=== PATIENT | female | born 1965 | race African-American/Black ===

== ENCOUNTER 2018-02-11 19:09 | Emergency (ER) | payer MEDICARE, OTHER ==
[~2018-02-11] VITALS: Ht 160 cm; Wt 68.0 kg
[2018-02-11 19:20] VITALS: BP 128/76
[2018-02-11 19:50] VITALS: BP 128/76
--- NOTE | 2018-02-11 21:54 | Emergency Room Report ---
History of Present Illness General Chief Complaint: Pain Source: Patient Present Illness HPI Patient is a 52-year-old female brought in by EMS after increased lower extremity pain. Patient prior history of chronic pain and had been taking [place] 06/01/2025. The patient prior history of amputation.Patient states that she had been close to running out of her pain medications. The patient was requesting a refill. Allergies: Coded Allergies: No Known Allergies (Unverified , 02/11/18) Patient History Past Medical History: see triage record Now: No Reviewed Nursing Documentation: PMH: Agreed; PSxH: Agreed Nursing Documentation-PMH Past Medical History: No History, Except For Hx Hypertension: Yes Hx Diabetes: Yes Review of Systems All Other Systems: negative except mentioned in HPI Physical Exam Vital Signs Date Time Temp Pulse Resp B/P (MAP) Pulse Ox O2 Delivery O2 Flow Rate FiO2 02/11/18 19:13 97.7 58 16 128/76 96 Room Air 97.7 General Appearance: well appearing, no apparent distress, alert, GCS 15, obese , Chronically Ill Head: normocephalic, atraumatic ENT: hearing grossly normal, normal voice Neck: full range of motion, supple Respiratory: no respiratory distress, speaking full sentences Gastrointestinal: normal inspection, normal bowel sounds, non tender Musculoskeletal: no calf tenderness Neurologic: normal inspection, alert, oriented x3, responsive, cherry picker operator III-XII nml as tested, other - left bka Psychiatric: mood/affect normal Skin: no rash Medical Decision Making Diagnostic Impression: Primary Impression: Chronic pain ER Course Patient presented for chronic pain. Differential diagnosis included was not limited to cellulitis, infection, opiate withdrawal among others. Patient has a benign exam and does not appear to require any further imaging or laboratory testing at this time. The patient was advised that has I could not refill her chronic pain medications.The patient is advised to follow up with primary care doctor in 1-2 days. Patient is advised to return if any worsening condition or if any changes in status that are concerning. This report is dictated with [employer] liquor runner software which may occasionally lead to discrepancies related to use of this software. Last Vital Signs Date Time Temp Pulse Resp B/P (MAP) Pulse Ox O2 Delivery O2 Flow Rate FiO2 02/11/18 19:50 97.7 16 128/76 96 Room Air 97.7 02/11/18 19:13 58 Status: unchanged Disposition: HOME, SELF-CARE Condition: Stable Referrals: NON PHYSICIAN (PCP) Domenic Ibarra MD Feb 11, 2018 21:54
== END 2018-02-11 19:50 | disposition home or self-care (01) ==
LOC: EDUNIT# 19:09 → EDBD 19:09 → EMR 19:36
DX: G89.29 Other chronic pain (principal); I10 Essential (primary) hypertension; E11.9 Type 2 diabetes mellitus without complications; Z89.512 Acquired absence of left leg below knee; E66.9 Obesity, unspecified; Z68.26 Body mass index [BMI] 26.0-26.9, adult
CPT/HCPCS: 99283

== ENCOUNTER 2019-05-20 20:45 | Inpatient (IN) | payer MEDICARE ==
[~2019-05-20] VITALS: Ht 160 cm; Wt 61.2 kg
[~2019-05-20 20:45] MED LIST: AMLODIPINE BESYL5 MG ORAL; BENZTROPINE ME0.5 MG PO; CATAPRES0.2 MG ORAL; HALOPERIDOL0.5 MG ORAL; NORCO 10-325 T1 EACH ORAL; SPIRONOLACTONE100 MG ORAL
--- NOTE | 2019-05-20 21:34 | Emergency Room Report ---
History of Present Illness General Chief Complaint: General Complaint Source: Patient Present Illness [facility] This is a 53-year-old female who was admitted here for bacteremia secondary to Acinobacter. She had a very high white count and positive blood culture. She signed out AMA to go smoke. Now she is back. She presents with chief complaint of positive blood culture. Patient denies any pain. No fever chills but no nausea no vomiting. Allergies: Coded Allergies: No Known Allergies (Unverified , 02/11/18) Patient History Past Medical History: see triage record, old chart reviewed Past Surgical History: other Pertinent Family History: none Social History: Reports: smoking Now: No Immunizations: other Reviewed Nursing Documentation: PMH: Agreed; PSxH: Agreed Nursing Documentation-PMH Past Medical History: No History, Except For Hx Cardiac Problems: Yes Hx Hypertension: Yes Hx Diabetes: Yes Hx Cancer: No Hx Gastrointestinal Problems: No Hx Neurological Problems: No Review of Systems Eye: Denies: eye pain, blurred vision ENT: Denies: ear pain, nose congestion, throat swelling Respiratory: Denies: cough, shortness of breath Cardiovascular: Denies: chest pain, palpitations Gastrointestinal: Denies: abdominal pain, diarrhea, nausea, vomiting Musculoskeletal: Denies: back pain, joint pain Skin: Denies: rash Neurological: Denies: headache, numbness Endocrine: Denies: increased thirst, increased urine Hematologic/Lymphatic: Denies: easy bruising All Other Systems: negative except mentioned in HPI Physical Exam Vital Signs Date Time Temp Pulse Resp B/P (MAP) Pulse Ox O2 Delivery O2 Flow Rate FiO2 05/20/19 20:57 98.4 125 18 148/83 (104) 97 Room Air Sp02 EP Interpretation: reviewed, normal General Appearance: well appearing, no apparent distress, alert Head: normocephalic, atraumatic Eyes: bilateral eye PERRL, bilateral eye EOMI ENT: hearing grossly normal, normal pharynx Neck: full range of motion, supple, no meningismus Respiratory: chest non-tender, lungs clear, normal breath sounds Cardiovascular #1: regular rate, rhythm, no murmur Gastrointestinal: normal bowel sounds, non tender, no mass, no organomegaly, no bruit, non-distended Musculoskeletal: back normal, gait/station normal, normal range of motion Psychiatric: mood/affect normal, other - flat Affect Medical Decision Making Diagnostic Impression: Primary Impression: Bacteremia Additional Impression: Chronic pain Qualified Codes: G89.4 - Chronic pain syndrome ER Course Presents with bacteremia and chronic pain. She has a high white count and a psychiatric disorder. She is in no condition to sign out AGAINST MEDICAL ADVICE. I discussed the case with Dr. Rodriguez who will admit the patient. Last Vital Signs Date Time Temp Pulse Resp B/P (MAP) Pulse Ox O2 Delivery O2 Flow Rate FiO2 05/20/19 20:57 98.4 125 18 148/83 (104) 97 Room Air Status: unchanged Disposition: ADMITTED INPATIENT Condition: Serious Referrals: NON PHYSICIAN (PCP) Guillermo Burk MD May 20, 2019 21:33
--- NOTE | 2019-05-20 22:00 | NUR ---
ED Nurse Note: PT BEING RE-ADMITTED TO FLOOR BED, REPORT CALLED TO FLOOR NURSE JORY KANG, PT HAS PATENT SALINE LOCK INTACT AND PATENT, DENIES PAIN, RESTING QUIETLY IN BED, BELONGINGS LIST COMPLETED, PT TAKEN TO FLOOR BED VIA GURNEY WITH ER-TECH, NAD NOTED DURING TRANSFER TO FLOOR BED.
[2019-05-20 22:15] VITALS: BP 141/74
--- NOTE | 2019-05-20 22:15 | NUR ---
ED Nurse Note: RECIEVED PT ON [employer] AWAKE, ALERT AND ORIENTED X 4, PT FOUND OUTSIDE, UNABLE TO AMBULATE, HAS PROSTETIC LEG ON RIGHT, PT WAS ADMITTED UPSTAIRS AND DISCHARGED AMA BECAUSE SHE WANTED TO SMOKE A CIGARETTE, PT SMOKED AND CAME RIGHT BACK INTO EMERGENCY DEPARTMENT FOR RE-ADMISSION, PT GOWNED AND PLACED ON MONITORING. Addendum: 05/21/19 at 0258 by RUSH PREVIOUS [id number] NURSE NOTE IS FOR 2114. WRONG TIME CHARTED.
[2019-05-20 22:35] VITALS: BP 119/88
[2019-05-21] VITALS: BP 132/87
[2019-05-21] MEDS ORDERED: oxyCODONE 5mg IR tab ORAL PRN ×2 (00:15→04:15)
[2019-05-21] MEDS ORDERED: LORazepam Inj 2mg/ml 1ml IV PRN (00:45)
[2019-05-21] MEDS ORDERED: LORazepam 1mg tab ORAL PRN (00:45)
[2019-05-21] MEDS ORDERED: Morphine Sulfate 2mg/ml Inj(IV/IM USE ONLY) IVP PRN (00:45)
[2019-05-21] MEDS ORDERED: Simethicone 80mg tab ORAL PRN (00:45)
[2019-05-21] MEDS ORDERED: cefTRIAXone 1 GM in D5W 55 ML IVPB SCH ×2 (02:30→11:00)
[2019-05-21 04:00] VITALS: BP 114/82
[2019-05-21 06:35] LABS: HEMATOCRIT 38.5 % (37.0-47.0); MEAN CORPUSCULAR VOLUME 95 FL (80-99); PLATELET COUNT 488 K/UL (150-450); RED BLOOD COUNT 4.06 M/UL (4.20-5.40); RED CELL DISTRIBUTION WIDTH 12.2 % (11.6-14.8)
[2019-05-21] MEDS: NovoLOG Insulin Flexpen SUBQ SCH ×2 (06:39→11:46)
[2019-05-21 06:41] LABS: WHITE BLOOD COUNT 23.4 K/UL (4.8-10.8)
[2019-05-21 07:21] LABS: ALANINE AMINOTRANSFERASE 46 U/L (12-78); ALBUMIN 2.5 G/DL (3.4-5.0); ALBUMIN/GLOBULIN RATIO 0.6 (1.0-2.7); ALKALINE PHOSPHATASE 127 U/L (46-116); ASPARTATE AMINO TRANSFERASE 25 U/L (15-37); BILIRUBIN,TOTAL 0.3 MG/DL (0.2-1.0); BLOOD UREA NITROGEN 27 mg/dL (7-18); CALCIUM 9.4 MG/DL (8.5-10.1); CREATININE 1.2 MG/DL (0.55-1.30)
--- NOTE | 2019-05-21 07:30 | NUR ---
HAND-OFF: Report given to Leah Montoya RN.
--- NOTE | 2019-05-21 07:31 | NUR ---
NURSE NOTES: While RN getting the report on the station, patient noted with episode of throwing coffee cup to the floor.Security was called right away.Patient was verbally abusive and screaming and yelling asking for smoking and spitted on RN.RN explained about smoking policy. Patient threw the whole tray to the floor and remote control too. No injuries to patient,nurse and security. Rn spoke to Dr. Nicholas and relayed WBC of 23.4 and patient is asking for smoking and nicotine patch is scheduled @ 9:00am. Dr. Nicholas said patient can go out for smoking x1 with assist and page Dr. Rodriguez. Order read back and carried out. EVS was called.
--- NOTE | 2019-05-21 07:50 | NUR ---
NURSE NOTES: Received patient on bed, awake, alert and verbally responsive. No SOB or cardiac distress. Noted with an episode of yelling and disruptive behavior: throwing her food tray across the room. Expressed desire to go AMA, risks and benefits explained. Head of bed elevated. Bed in lowest position and locked. Kept call light within reach. Will continue plan of care.
--- NOTE | 2019-05-21 07:50 | NUR ---
NURSE NOTES: Patient is calm @ this time asking to be cleaned.
[2019-05-21 08:00] VITALS: BP 117/76
--- NOTE | 2019-05-21 08:30 | NUR ---
NURSE NOTES: patient states that she has no cigaret and agreed not to go for smoking. Patient is calm @ this time. Will continue to monitor.
[2019-05-21 08:33] LABS: ANION GAP 11 mmol/L (5-15); CARBON DIOXIDE 22 MMOL/L (21-32); CHLORIDE 105 MMOL/L (98-107); POTASSIUM 4.7 MMOL/L (3.5-5.1); SODIUM 138 MMOL/L (136-145)
[2019-05-21] MEDS ORDERED: Aspirin Baby 81mg ORAL SCH (09:00)
[2019-05-21] MEDS ORDERED: Heparin 5000 units/ml inj SUBQ SCH (09:00)
[2019-05-21] MEDS ORDERED: Fluconazole 100mg tab ORAL SCH (09:00)
--- NOTE | 2019-05-21 10:00 | NUR ---
NURSE NOTES: Patient is calm @ this time.Resting in bed.
[2019-05-21 10:05] VITALS: BP 117/76
[2019-05-21] MEDS: Lactobacillus-GG tablet ORAL SCH ×2 (10:05→13:00)
--- NOTE | 2019-05-21 11:30 | NUR ---
PT Note Acknowledged order for PT eval. Attempted to see patient for eval but patient was uncooperative. Per RN, patient is ambulatory with a steady gait. Will DC physical therapy at this time; re-order if PT is needed at a later time.
--- NOTE | 2019-05-21 11:51 | Infectious Diseases Prog Note ---
Assessment/Plan Assessment/Plan A 1. ileitis 2. Acinetobacter sepsis 3. leucocytosis worsening 4. diabetes mellitus 5. hypertension 6. thrush 7. Nicotine Dependence P 1. continue ceftriaxone 1 more days 2. continue fluconazole 3 more days Subjective ROS Limited/Unobtainable: No Constitutional: Reports: anorexia Respiratory: Reports: dry cough Gastrointestinal/Abdominal: Reports: other - abdominal pain Genitourinary: Reports: dysuria Allergies: Coded Allergies: No Known Allergies (Unverified , 02/11/18) Objective Vital Signs Last 24 Hour Vital Signs Date Time Temp Pulse Resp B/P (MAP) Pulse Ox O2 Delivery O2 Flow Rate FiO2 05/21/19 10:05 103 117/76 05/21/19 09:00 Room Air 05/21/19 08:00 98.4 103 22 117/76 (90) 96 05/21/19 04:00 98.0 95 18 114/82 (93) 96 05/21/19 01:45 Room Air 05/21/19 00:00 98.7 112 18 132/87 (102) 96 05/20/19 22:35 98.9 106 18 119/88 (98) 98 05/20/19 22:20 98.4 94 18 141/74 98 Room Air 05/20/19 22:15 98.4 94 18 141/74 98 Room Air 05/20/19 21:10 125 18 Room Air 05/20/19 20:57 98.4 125 18 148/83 (104) 97 Room Air Height (Feet): 5 Height (Inches): 3.00 Weight (Pounds): 135 General Appearance: no acute distress HEENT: mucous membranes moist Respiratory/Chest: lungs clear Cardiovascular: tachycardia Abdomen: tender Extremities: no edema, other - R BKA Neurologic/Psychiatric: alert, oriented x 3, responsive Laboratory Tests Test 05/21/19 05:15 White Blood Count 23.4 K/UL (4.8-10.8) *H Red Blood Count 4.06 M/UL (4.20-5.40) L Hemoglobin 13.0 G/DL (12.0-16.0) Hematocrit 38.5 % (37.0-47.0) Mean Corpuscular Volume 95 FL (80-99) Mean Corpuscular Hemoglobin 32.0 PG (27.0-31.0) H Mean Corpuscular Hemoglobin Concent 33.7 G/DL (32.0-36.0) Red Cell Distribution Width 12.2 % (11.6-14.8) Platelet Count 488 K/UL (150-450) H Mean Platelet Volume 6.3 FL (6.5-10.1) L Neutrophils (%) (Auto) % (45.0-75.0) Lymphocytes (%) (Auto) % (20.0-45.0) Monocytes (%) (Auto) % (1.0-10.0) Eosinophils (%) (Auto) % (0.0-3.0) Basophils (%) (Auto) % (0.0-2.0) Differential Total Cells Counted 100 Neutrophils % (Manual) 76 % (45-75) H Lymphocytes % (Manual) 16 % (20-45) L Monocytes % (Manual) 5 % (1-10) Eosinophils % (Manual) 3 % (0-3) Basophils % (Manual) 0 % (0-2) Band Neutrophils 0 % (0-8) Platelet Estimate Adequate Platelet Morphology Normal Red Blood Cell Morphology Normal Sodium Level 138 MMOL/L (136-145) Potassium Level 4.7 MMOL/L (3.5-5.1) Chloride Level 105 MMOL/L (98-107) Carbon Dioxide Level 22 MMOL/L (21-32) Anion Gap 11 mmol/L (5-15) Blood Urea Nitrogen 27 mg/dL (7-18) H Creatinine 1.2 MG/DL (0.55-1.30) Estimat Glomerular Filtration Rate 57.0 mL/min (>60) Glucose Level 124 MG/DL (74-106) H Calcium Level 9.4 MG/DL (8.5-10.1) Magnesium Level 1.8 MG/DL (1.8-2.4) Total Bilirubin 0.3 MG/DL (0.2-1.0) Aspartate Amino Transf (AST/SGOT) 25 U/L (15-37) Alanine Aminotransferase (ALT/SGPT) 46 U/L (12-78) Alkaline Phosphatase 127 U/L (46-116) H Total Protein 6.7 G/DL (6.4-8.2) Albumin 2.5 G/DL (3.4-5.0) L Globulin 4.2 g/dL Albumin/Globulin Ratio 0.6 (1.0-2.7) L Current Medications Medications (Trade) Dose Ordered Sig/Dk Route PRN Reason Start Time Stop Time Status Last Admin Dose Admin Amlodipine Besylate (Norvasc) 5 mg DAILY ORAL 05/21/19 09:00 06/20/19 08:59 05/21/19 10:05 Aspirin (ASA) 81 mg DAILY ORAL 05/21/19 09:00 06/20/19 08:59 05/21/19 10:05 Ceftriaxone Sodium 1 gm/ Dextrose 55 ml @ 110 mls/hr Q24H IVPB 05/21/19 11:00 05/28/19 02:29 Dextrose (Dextrose 50%) 25 ml Q30M PRN IV Hypoglycemia 05/21/19 00:15 06/20/19 00:14 Dextrose (Dextrose 50%) 50 ml Q30M PRN IV Hypoglycemia 05/21/19 00:15 06/20/19 00:14 Fluconazole (Diflucan) 200 mg DAILY ORAL 05/21/19 09:00 05/28/19 08:59 05/21/19 10:04 Heparin Sodium (Porcine) (Heparin 5000 units/ml) 5,000 units EVERY 12 HOURS SUBQ 05/21/19 09:00 06/20/19 08:59 05/21/19 10:06 Insulin Aspart (NovoLOG) BEFORE MEALS AND HS SUBQ 05/21/19 06:30 06/20/19 06:29 05/21/19 06:39 Lactobacillus Acidophilus (Culturelle) 1 tab THREE TIMES A DAY ORAL 05/21/19 09:00 06/20/19 08:59 05/21/19 10:05 Lorazepam (Ativan 2mg/ml 1ml) 2 mg Q4H PRN IV For Anxiety 05/21/19 00:45 05/28/19 00:44 Lorazepam (Ativan) 2 mg Q4HR PRN ORAL anxiety 05/21/19 00:45 05/28/19 00:44 Morphine Sulfate (Morphine Sulfate) 1 mg Q4HR PRN IVP SEVERE 7-10 05/21/19 00:45 05/28/19 00:44 05/21/19 10:41 Nicotine (Nicoderm) 1 patch Q24H TDERMAL 05/21/19 09:00 06/20/19 08:59 05/21/19 10:05 Oxycodone HCl (Roxicodone) 5 mg Q4H PRN ORAL MODERATE PAIN 4-6 05/21/19 04:15 05/28/19 00:14 Risperidone (RisperDAL) 1 mg BEDTIME ORAL 05/21/19 21:00 06/20/19 20:59 Simethicone (Mylicon) 80 mg TID PRN ORAL GAS PAIN/EPIGASTRIC PAIN 05/21/19 00:45 06/20/19 00:44 Hesham Tariq MD May 21, 2019 11:50
--- NOTE | 2019-05-21 12:00 | NUR ---
NURSE NOTES: Dr. Hesham Tariq came in and RN relayed WBC of 23.4 and afebrile and patient is on IV antibiotics. Will see the patient.
--- NOTE | 2019-05-21 13:40 | NUR ---
NURSE NOTES: Patient is in bed,awake, all of a sudden,patient started yelling and screaming asking for smoking. Patient is verbally abusive and combative @ this time. Patient stating " I am gonna leave this hospital, get the AMA paper, I am gonna sign for that." Patient is alert and oriented x4, patient answer her name, birthday, name of the place where she is at, her address, date and day correct.RN re-explained about AMA,patient fully understood and stated " I am gonna take all the responsibilities, do not waoory." Patient is not in respiratory distress, denies chest pain or SOB. Skin intact, IV and ID were removed, no s/s of infection on IV removal site. Dr. Nicholas who is covering for Dr. Rodriguez and Dr. Hanna made aware. RN spoke to patient's daughter Socorro Jose about AMA. Addendum: 05/21/19 at 1522 by ORTEGA THOMAS RN Patient is aware of WBC of 23.4
--- NOTE | 2019-05-21 13:41 | NUR ---
NURSE NOTES: Charge nurse and laborer tan house aware of AMA.
--- NOTE | 2019-05-21 13:41 | NUR ---
NURSE NOTES: Patient did not take any pain meds or norcotic meds in past few hours.
--- NOTE | 2019-05-21 18:15 | History and Physical Report ---
DATE OF ADMISSION: 05/20/2019 REASON FOR ADMISSION: Ileitis and bacteremia. HISTORY OF PRESENT ILLNESS: This 53-year-old female, has been hospitalized for over two weeks with persistent leukocytosis and positive blood cultures for Acinetobacter. She also has been noted to have ileitis and there are plans for a followup colonoscopy once infection is under better control. Yesterday, the patient left this hospital against medical advice. She stated she was tired of being in the hospital . She returned to the emergency room today for treatment and because of her medical condition, rehospitalization is planned. The patient did have a nicotine patch on at the time she left the hospital. PAST MEDICAL HISTORY: Aortic atheroma, interstitial lung disease, type 2 diabetes mellitus, hypertensive heart disease, schizoaffective disorder. ALLERGIES: None. MEDICATIONS: Reviewed and reconciled. FAMILY HISTORY: Noncontributory. SOCIAL HISTORY: Positive for smoking. No alcohol or substance abuse. REVIEW OF SYSTEMS: Unchanged from prior dictation for recent hospital stay. PHYSICAL EXAMINATION: VITAL SIGNS: Afebrile, blood pressure 148/83, pulse 125, respirations 18. HEENT: Conjunctivae pink. Oropharynx clear. NECK: Supple. LUNGS: Clear. CARDIAC: Regular rhythm. Rapid rate. Normal S1, S2 with no murmur. ABDOMEN: Soft, mildly tender in the lower quadrants. No guarding or rebound. EXTREMITIES: Good pulses. No edema. NEUROLOGIC: Flat affect. Motor and sensory intact. LABORATORY DATA: White count 23, hemoglobin 13, BUN 27, creatinine 1.2. Albumin 2.5. IMPRESSION: 1. Persisting leukocytosis due to ileitis. 2. Moderate to severe protein-calorie malnutrition. 3. Acinetobacter bacteremia and sepsis. 4. History of hypertension. 5. Aortic atheroma. 6. Interstitial lung disease. 7. Nicotine dependence. 8. Mild dehydration. 9. Prerenal azotemia. PLAN: 1. Resume prior medications regimen and IV antimicrobials. 2. Encourage oral fluid intake and consider additional IV fluid hydration. 3. Psychiatric followup. 4. Nicotine patch. 5. Colonoscopy to follow. Aron Rodriguez M.D. : CARRI/MS JOB#: [id number] CC:
--- NOTE | 2019-05-21 20:24 | Discharge Summary ---
Discharge Summary Discharge Summary _ DATE OF ADMISSION: 05/20/2019 DATE OF DISCHARGE: 05/21/2019 Patient left AGAINST MEDICAL ADVICE REASON FOR ADMISSION: 53 years old female with past medical history of aortic atheroma, interstitial lung disease, diabetes mellitus type 2, hypertensive heart disease, schizoaffective disorder, has been hospitalized for over 2 weeks with persistent leukocytosis and positive blood culture for Acinetobacter. Patient noted to have ileitis and there were plans for follow-up colonoscopy once infection will be under better control. Patient left hospital AGAINST MEDICAL ADVICE on 05/20 and later returned to emergency department for rehospitalization. Vital signs revealed tachycardia with heart rate 125, blood pressure was 148/83. Laboratory work-up revealed leukocytosis with WBC 23.9, stable hemoglobin and hematocrit. Stable electrolytes. Glucose 124. BUN 27, creatinine 1.2. Patient subsequently admitted for further management. CONSULTANTS: ID specialist Dr. Orosco [facility] COURSE: Patient admitted to medical surgical floor. Prior medication regimen along with IV antibiotics resumed. Oral hydration was encouraged. Nicotine patch provided. Pain management was addressed. Blood sugar was managed with sliding scale of insulin. DVT prophylaxis provided. Blood pressure was managed with calcium channel genesis. Psychiatric medication regimen continued. Infectious disease specialist seen and evaluated patient and recommended to continue ceftriaxone for 1 more day and fluconazole for 3 more days. Patient remained afebrile. On 05/21 patient decided to leave AGAINST MEDICAL ADVICE. Patient did not take any narcotics few hours prior to leaving. The risks and consequences of signing AGAINST MEDICAL ADVICE were discussed with patient in detail. Patient verbalized understanding, nevertheless signed AMA form and left. FINAL DIAGNOSES: Ileitis Acinetobacter bacteremia and sepsis Leukocytosis, persistent due to ileitis Diabetes mellitus Hypertensive heart disease Aortic atheroma Interstitial lung disease Mild dehydration Nicotine dependency, Moderate to severe protein calorie malnutrition I have been assigned to dictate discharge summary for this account. I was not involved in the patient's management. Madeline Dean NP May 21, 2019 20:24
== END 2019-05-21 15:17 | disposition left against medical advice (07) | DRG 871 ==
LOC: EMR 21:19 → 4E 21:35 → EDBEDREQ 21:47
DX: A41.50 Gram-negative sepsis, unspecified (principal); E43 Unspecified severe protein-calorie malnutrition; J84.9 Interstitial pulmonary disease, unspecified; K52.9 Noninfective gastroenteritis and colitis, unspecified; E11.9 Type 2 diabetes mellitus without complications; I11.9 Hypertensive heart disease without heart failure; I70.0 Atherosclerosis of aorta; E86.0 Dehydration; F17.200 Nicotine dependence, unspecified, uncomplicated; B37.9 Candidiasis, unspecified; F25.9 Schizoaffective disorder, unspecified; Z91.19 Patient's noncompliance with other medical treatment and regimen
CPT/HCPCS: 36415; 80053; 82962; 83735; 85007; 85025; 99285; J1815